=== PATIENT | male | born 1965 | race Hispanic/Latino ===

== ENCOUNTER → 2019-05-11 07:38 | Outpatient (CLI) | payer OTHER, SELFPAY ==
--- NOTE | 2019-05-11 08:05 | DI.CT.S_ITS ---
PROCEDURE: CT ANGIO HEAD INDICATIONS: Hemicrania continua TECHNIQUE: Precontrast 4.5 mm thick angled axial sections acquired from the foramen magnum to the vertex. After the administration of intravenous contrast, 1 mm thick sections acquired through the [place]. Postcontrast 4.5 mm thick sections then re-acquired from the foramen magnum to the vertex. 10 mm thick xdssuti-ewedkhcil-acypnunjum (MIP) reformats were acquired of the central intracranial vasculature. For radiation dose reduction, the following was used: automated exposure control, adjustment of mA and/or kV according to patient size. COMPARISON: None. FINDINGS: Image quality: Excellent. Anterior circulation: Intracranial internal carotid arteries are normal in size and flow. The flow within the paired anterior cerebral arteries is normal and symmetric. The flow within the middle cerebral arteries is normal and symmetric. The anterior communicating artery is seen. No aneurysms are seen. Posterior circulation: Visualized portions of the vertebral arteries demonstrate normal caliber, and join to form a normal appearing basilar artery. Flow within the posterior cerebral arteries is normal and symmetric. No aneurysms are seen. CSF spaces: Ventricles are normal in size and shape. Basal cisterns are patent. No extra-axial fluid collections. Brain: No midline shift. No intracranial bleeds or masses. Jaimes-white matter interface appears intact. Skull and face: Calvarium and facial bones appear intact, without suspicious lesions. Sinuses: Visualized sinuses and mastoids are clear. IMPRESSION: No acute intracranial process. Unremarkable head CT angiogram as detailed above Dictated by: Liu Solo M.D. on 05/11/2019 at 8:32 Approved by: Liu Solo M.D. on 05/11/2019 at 8:37
== END ==
PROVIDERS: Visit Provider Psychiatry & Neurology Neurology
DX: G44.51 Hemicrania continua (principal)
CPT/HCPCS: 70496; Q9967

== ENCOUNTER → 2021-01-15 16:11 | Outpatient (CLI) | payer OTHER, SELFPAY ==
--- NOTE | 2021-01-15 | DI.MRI.S_ITS ---
PROCEDURE: MR BRAIN (IAC) WWO CON INDICATIONS: Unspecified sensorineural hearing loss TECHNIQUE: Noncontrast sagittal T1 spin echo, axial FLAIR, axial gradient echo, axial diffusion and ADC through the brain. Axial thin-slice 3D CISS, coronal TruFISP, axial T1 spin echo with fat saturation through the internal auditory canals. After the administration of contrast, thin slice axial and coronal T1 spin echo with fat saturation through the internal auditory canals, and axial T1 spin echo with fat saturation through the brain. COMPARISON: None. FINDINGS: Image quality: Excellent. Cerebellopontine angles: No cerebellopontine angle masses. Inner ear structures appear normally formed. No suspicious enhancement in the internal auditory canal or along the course of the 7th cranial nerve. CSF spaces: Ventricles are normal in size and shape. No extra-axial fluid collections. Basal cisterns are patent. Brain: No intracranial bleeds or mass effects. Jaimes-white matter interface is intact. No abnormal intracranial enhancement. Diffusion weighted images demonstrate no acute ischemic insults. Brainstem appears normal. Normal intravascular flow voids are present. Skull and face: Calvarial marrow signal is normal. Orbits appear normal. Sinuses: Sinuses and mastoids are clear. IMPRESSION: Normal study. No cerebellopontine or internal auditory canal mass to explain hearing loss. No signal abnormality or abnormal enhancement along the course of the 7th or 8th cranial nerve complexes. Dictated by: Joselito Leiva M.D. on 01/16/2021 at 8:47 Approved by: Joselito Leiva M.D. on 01/16/2021 at 8:50
== END ==
PROVIDERS: Referring Provider Otolaryngology; Visit Provider Otolaryngology
DX: H90.5 Unspecified sensorineural hearing loss (principal)
CPT/HCPCS: 70553; A9579

== ENCOUNTER → 2022-03-05 08:59 | Outpatient (CLI) | payer OTHER, SELFPAY ==
[2022-03-05 10:00] LABS: COVID19 -Nasal RAPID Negative (Negative)
== END ==
PROVIDERS: PCP Family Medicine; Visit Provider Surgery
DX: Z01.812 Encounter for preprocedural laboratory examination (principal); Z20.822 Contact with and (suspected) exposure to COVID-19
CPT/HCPCS: 87635; C9803

== ENCOUNTER 2022-03-08 09:47 | Day surgery (SDC) | payer OTHER, SELFPAY ==
[2022-03-08] VITALS (7 sets, daily range): BP systolic 111–148; BP diastolic 54–74; PULSE 52–69; RESP 12–16; TEMP 35.8–36.9; O2SAT 98–100; BMI 29.0
--- NOTE | 2022-03-08 | PATH_ITS ---
[facility] Accession Number: [id number] . 01 Material submitted: . PART A: colon - ASCENDING COLON POLYP PART B: colon - RECTAL/SIGMOID COLON POLYP . 01 Clinical history: . SCREENING COLONOSCOPY ENCOUNTER FOR SCREENING FOR MALIGNANT NEOPLASM . 01 Diagnosis: A. Ascending Colon Polyp, Biopsy: Tubular adenoma. . B. Rectal/Sigmoid Colon Polyp, Biopsy: Tubular adenoma. MRV 03/10/2022 1223 Local . 01 Electronically signed: . Kristel Christopher MD, Pathologist NPI- [id number] . 01 Gross description: . Part A: ASCENDING COLON POLYP: Received in formalin is 1 fragment(s) of forbes, soft tissue measuring 0.5 x 0.2 x 0.2 cm submitted entirely in 1 cassette(s) Part B: RECTAL/SIGMOID COLON POLYP: Received in formalin is 1 fragment(s) of forbes, soft tissue measuring 0.5 x 0.1 x 0.1 cm submitted entirely in 1 cassette(s) /CPE 03/09/2022 0605 Local . 01 Pathologist provided ICD-10: D12.2, D12.8, D12.5 . 01 CPT . 177551, 784467 Specimen Comment: A courtesy copy of this report has been sent to [phone] Performed at: 01 [facility] [address] [place] [address], [place], [place] [id number] MD Angel Sandra MD Phone: [phone]
[2022-03-08] MEDS: SODIUM CHLORIDE 0.9% 1,000 ML 84 ML IV (10:20)
--- NOTE | 2022-03-08 10:32 | PM.HP.1 ---
History of Present Illness History of Present Illness Date Patient Seen: 03/08/22 Time Patient Seen: 10:33 Chief complaint: SCREENING COLONOSCOPY Narrative: Personal history of colon polyps Patient History Family & Social History Family History Father Diabetes mellitus Mother Age: 91 Hypertension Dementia Sister Age: 60 Pancreatic cancer Social History: household members spouse Tobacco & Substance use: Smoking Status Never smoker alcohol intake current alcohol intake frequency holiday/special occasion Substance Use Type does not use Meds Home Medications and Allergies Home Medications Medication Instructions Recorded Confirmed Type lisinopril 10 mg tablet 10 tab PO DAILY 03/08/22 03/08/22 History Allergies Allergy/AdvReac Type Severity Reaction Status Date / Time No Known Drug Allergies Allergy Verified 03/08/22 10:21 Review of Systems Review of Systems ROS: Yes All systems reviewed with the patient and are negative except as otherwise documented Exam Vital Signs (past 8 hours): - 03/08/22 10:09 Temperature 97.2 F L Pulse Rate 63 Respiratory Rate 16 Blood Pressure 148/74 H Pulse Oximetry 99 Oxygen Delivery Method Room Air Oxygen Delivery Method Room Air Const General: cooperative HENMT Head: normal to inspection Eyes General: appearance normal, both eyes and all related structures Neck Neck: normal visual inspection Chest Chest: normal inspection of the chest Resp Effort & Inspection: normal respiratory effort Cardio Rate: regular rate GI Inspection: normal to inspection Skin General: no rashes or lesions noted Neuro General: patient alert and patient awake Extrem General: normal to inspection and no pedal edema Psych Appearance: grossly normal Assessment & Plan Assessment & Plan narrative: 56-year-old male with a personal history of polyps. Colonoscopy is pursued today. Time Spent With Patient Critical Care time: I spent a total of [] minutes of critical care time on this patient's care today; this time is exclusive of procedural time.
--- NOTE | 2022-03-08 10:34 | PM.PREOP ---
Pre-operative Note COVID-19 COVID-19 status: Negative Result date/Date tested (Pos, Neg/Pending): 03/05/22 Criteria for continued procedure: Possibility delay results in more complex future surgery or treatment Interval Note History & Physical reviewed/Exam performed by Physician: Yes Changes to H&P: No ASA Class (for procedural sedation): II
--- NOTE | 2022-03-08 12:03 | P.OP.COLON_ITS ---
Operative Date/Time/Diagnoses Date of procedure: 03/08/22 Time of procedure: 12:03 Pre-op diagnosis: Personal history of colon polyps Post-op diagnosis: same Procedure & Clinicians Study performed: Colonoscopy with cold snare polypectomy Same procedure as scheduled: Yes Indications: Personal history of colon polyps Surgeon: Rusty Finney Procedure Notes SCOAP/Timeout: Done Procedure in detail: After the risks and benefits were explained, written and verbal informed consent was obtained. The patient was brought into the procedure room and placed into the left lateral decubitus position. Please see nurse engine service repairer notes for sedation details. Digital rectal examination was accomplished. The scope was introduced into the patient and advanced under direct visualization to the cecum as identified by the appendiceal orifice and ileocecal valve. The scope was slowly withdrawn to carefully examine the mucosa for any defects or lesions. Comprehensive imaging was accomplished throughout the rectum including the dentate line. The colon was decompressed, the scope was then removed from the patient who tolerated the procedure well. Adult colonoscope Bowel prep adequate Scope withdrawal time: 10 minutes Sedation minutes: 14 Complications: none Impression: There was a 6 mm sessile polyp in the ascending colon removed with cold snare. There was a 5-6 mm sessile polyp in the rectosigmoid region also removed with cold snare. No additional pathology was appreciated throughout. Endoscopic diagnosis Colon polyps Post-procedure Plan for aftercare: 1. Await histopathology 2. Repeat colonoscopy 7 years. Disposition: PACU
== END 2022-03-08 13:00 | disposition home or self-care (01) ==
PROVIDERS: PCP Family Medicine; Referring Provider Internal Medicine Gastroenterology; Visit Provider Internal Medicine Gastroenterology
PROC: 0DJD8ZZ Inspection of Lower Intestinal Tract, Via Natural or Artificial Opening Endoscopic (ICD-10-PCS; CPT 45378; principal; 2022-03-08 11:00)
DX: Z12.11 Encounter for screening for malignant neoplasm of colon (principal); Z86.010 Personal history of colon polyps; D12.7 Benign neoplasm of rectosigmoid junction; D12.2 Benign neoplasm of ascending colon
CPT/HCPCS: 45385; J2704

== ENCOUNTER → 2022-08-26 16:39 | Outpatient (CLI) | payer OTHER, SELFPAY ==
--- NOTE | 2022-08-26 | DI.MRI.S_ITS ---
PROCEDURE: MR HUMERUS RT WO/W CON INDICATIONS: right mid bicep mass TECHNIQUE: Noncontrast coronal T1 spin echo and STIR, sagittal T1 spin echo with fat saturation and STIR, axial T1 spin echo and T2 fast spin echo with fat saturation. After the administration of contrast, axial/sagittal/coronal T1 spin echo with fat saturation through the right upper arm. COMPARISON: [facility], , US VENOUS DUPLEX RIGHT, 08/20/2022, 9:39. FINDINGS: Image quality: Excellent. Bones: The visualized bone marrow demonstrates normal signal on all sequences. The overlying cortex appears intact. No abnormal intraosseous enhancement. Soft tissues: A 0.9 x 0.4 by 1.1 cm lesion is seen in the right biceps muscle at the level of the mid humerus, which follows fat signal intensity on all sequences (reference image 32 of series 9). No suspicious solid component or postcontrast enhancement is seen. This corresponds to the hyperechoic lesion seen on prior ultrasound from 08/20/2022. The scanned muscles demonstrate normal overall bulk and internal signal. Subcutaneous tissues appear normal as well. No abnormal soft tissue enhancement. IMPRESSION: A 1.1 cm fatty lesion is seen within the right biceps muscle corresponding to the abnormality seen on ultrasound from 08/20/2022. No suspicious solid enhancing components. 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 Approved by: David Meyers M.D. on 09/01/2022 at 16:28
== END ==
PROVIDERS: PCP Family Medicine; Referring Provider Family Medicine; Visit Provider Family Medicine
DX: M67.921 Unspecified disorder of synovium and tendon, right upper arm (principal)
CPT/HCPCS: 73218; A9579

== ENCOUNTER → 2022-10-04 15:02 | Outpatient (CLI) | payer OTHER, SELFPAY ==
--- NOTE | 2022-10-04 | DI.MRI.S_ITS ---
PROCEDURE: MR SHOULDER RT WO CON INDICATIONS: Bursitis of right shoulder TECHNIQUE: Noncontrast oblique coronal T2 fast spin echo with fat saturation, oblique sagittal T1 spin echo and T2 fast spin echo with fat saturation, axial T1 spin echo and T2 fast spin echo with fat saturation through the shoulder. COMPARISON: None. FINDINGS: Image quality: Excellent. Rotator cuff: Low-grade articular and bursal surface partial thickness tear involving distal supraspinatus at its insertion on the humeral head is seen extending to musculotendinous junction. Distal infraspinatus and subscapularis tendinosis is seen. No full-thickness rotator cuff tendon rupture. Sagittal images demonstrate no significant rotator cuff muscle atrophy. Bones and bursae: No bone marrow contusions or fractures. Mild to moderate acromioclavicular joint osteoarthritic changes are seen with joint space narrowing, subchondral sclerosis and downward osteophyte formation depressing the musculotendinous junction of supraspinatus. Glenohumeral joint osteoarthritic changes also seen with joint space narrowing and subchondral sclerosis. Nonspecific intraosseous cyst formation in greater tuberosity of humeral head is seen. There is moderate amount of joint effusion and subacromial subdeltoid bursal fluid. Capsule and soft tissues: Labrum is grossly intact. The long head of the biceps tendon demonstrates normal location and morphology. The rotator interval appears normal, without fibrosis. The coracohumeral ligament is normal in thickness. IMPRESSION: 1. Low-grade articular and bursal surface partial thickness tear involving distal supraspinatus extending to musculotendinous junction. Distal infraspinatus and subscapularis tendinosis. No full-thickness rotator cuff tendon rupture. 2. Mild to moderate acromioclavicular joint osteoarthritis and mild glenohumeral joint osteoarthritis. No fracture or dislocation. Moderate amount subacromial subdeltoid bursal fluid. 3. No definite focal labral tear. Dictated by: Dae Weaver M.D. on 10/04/2022 at 16:07 Approved by: Dae Weaver M.D. on 10/04/2022 at 16:16
== END ==
PROVIDERS: PCP Family Medicine; Referring Provider Orthopaedic Surgery; Visit Provider Orthopaedic Surgery
DX: M75.111 Incomplete rotator cuff tear or rupture of right shoulder, not specified as traumatic (principal); M75.51 Bursitis of right shoulder; M19.011 Primary osteoarthritis, right shoulder
CPT/HCPCS: 73221

== ENCOUNTER → 2022-10-11 09:56 | Outpatient (CLI) | payer OTHER, SELFPAY ==
--- NOTE | 2022-10-11 | DI.NM.S_ITS ---
PROCEDURE: NM PARATHYROID SPECT RADIOPHARMACEUTICAL: 27 mCi Tc-99m sestamibi IV. INDICATIONS: NECK MASS TECHNIQUE: After intravenous administration of Tc-99m sestamibi, anterior planar images of the neck and mediastinum were obtained at approximately 10 minutes and 2-3 hours. SPECT images were acquired after the 10 minute planar images. COMPARISON: [facility], , THYROID, 09/10/2022, 8:29. FINDINGS: On the early images, the thyroid gland is bilobed and has normal size and morphology. The delayed images show mild increased tracer retention in new fear left lobe. IMPRESSION: Delayed retention in the inferior left lobe suspicious for parathyroid adenoma. CT with parathyroid protocol may be obtained for further evaluation. Dictated by: Steffi Armijo M.D. on 10/11/2022 at 16:52 Approved by: Steffi Armijo M.D. on 10/11/2022 at 16:53
== END ==
PROVIDERS: PCP Family Medicine; Referring Provider Otolaryngology; Visit Provider Otolaryngology
DX: R22.1 Localized swelling, mass and lump, neck (principal); D35.1 Benign neoplasm of parathyroid gland
CPT/HCPCS: 78071; A9500

== ENCOUNTER → 2022-10-12 09:46 | Outpatient (CLI) | payer OTHER, SELFPAY ==
--- NOTE | 2022-10-12 | DI.US.S_ITS ---
PROCEDURE: US FINE NEEDLE ASPIRATION INDICATIONS: RIGHT INFERIOR THYROID NODULE TECHNIQUE: The indications, alternatives, benefits, risks, and complications of the procedure were explained to the patient. Written informed consent was obtained and placed in the chart. The thyroid region was examined sonographically and a site was chosen for ultrasound guided percutaneous sampling. The skin was prepared and draped in the usual fashion, and anesthetized with 1% lidocaine infiltrated from the skin down to the thyroid gland. Multiple passes were then performed, with contents emptied into an appropriate pathology specimen container. A bandage was applied to the area of access at completion of the study. COMPARISON: None. FINDINGS: Location(s) of lesion(s) sampled: Right inferior thyroid Sumpter: 25 gauge hypodermic needles. Number of passes: 6 Medications: 1% lidocaine for local anaesthesia. Complications: None. IMPRESSION: Successful ultrasound-guided thyroid nodule fine needle aspiration, with cytology results pending. Please see chart below for management recommendations based on cytology results. [facility] ReportingRecommendationsNon-diagnostic* Repeat US-guided FNA, with on-site cytology evaluation if possible. * Repeated non-diagnostic nodules without high suspicion US features: close observation vs surgical consult. * Consider surgery if nodule has high suspicion US features, grows >20% in 2 dimensions on followup, or patient has clinical risk factors for malignancy. Benign* If nodule has high suspicion US features: repeat US and FNA within 12 months. * If nodule has low to intermediate suspicion US features: repeat US at 12-24 months. If nodule grows (20% increase in at least 2 dimensions, with minimal increase of 2 mm or >50% change in volume), or development of new suspicious US features, then repeat FNA or continue followup. * If nodule has very low suspicion US features: followup US at >24 months. Atypia of undetermined significance, follicular lesion of undetermined significanceRepeat FNA, molecular testing, followup US, or surgical consult.Follicular neoplasm, suspicious for follicular neoplasmSurgical consult; also consider molecular testing. Suspicious for malignancySurgical consult.MalignantSurgical consult. Dictated by: Mariah Hoff M.D. on 10/12/2022 at 11:24 Transcribed by: CHARLEY on 10/12/2022 at 11:25 Approved by: Mariah Hoff M.D. on 10/12/2022 at 16:46
--- NOTE | 2022-10-12 | PATH_ITS ---
Note [facility] Accession Number: [id number] TESTS RESULT FLAG UNITS REF RANGE LAB Clinician Provided Cytology Information No. of containers..00 Previously Prepared Cytology Slide 35 Unknown Storage/container code(s) Source: RIGHT INFERIOR THYROID NODULE DIAGNOSIS: RIGHT INFERIOR THYROID NODULE BENIGN. BETHESDA CATEGORY II. SPECIMEN CONSISTS OF BENIGN FOLLICULAR CELLS, HEMOSIDERIN-LADEN MACROPHAGES, COLLOID, AND BLOOD. THIS PATTERN IS CONSISTENT WITH A COLLOID NODULE. Pathologist ICD10: E04.1 Signed out by: Melody Schwartz MD, Pathologist NPI- [id number] Performed by: Cody Deleon, Professor Of Environmental Engineering ([facility]) Gross description: 30 CC, PINK, HAZY RECEIVED IN CYTOLYT WHITE CAP CONTAINER RECEIVED 5 ALCOHOL FIXED SLIDES RECIEVED 5 FIXED SLIDES IN 2 SLIDE HOLDERS RECEIVED 1 RNA VIAL /RZA 10/13/2022 1008 Local FLAG LEGEND: L-Low Normal,H-High Normal,LL-Alert Low,HH-Alert High <-Panic Low,>-Panic High,A-Abnormal,AA-Critical Abnormal Performed at: 01 [facility] [address], [place] [address] Angel Sandra MD, Performed at: 01 [facility] [address], [place], [place] [id number] MD Angel Sandra MD Phone: [phone]
== END ==
PROVIDERS: PCP Family Medicine; Referring Provider Otolaryngology; Visit Provider Otolaryngology
DX: E04.1 Nontoxic single thyroid nodule (principal); D35.1 Benign neoplasm of parathyroid gland
CPT/HCPCS: 10005